=== PATIENT | female | born 1995 | race Caucasian/White ===

== ENCOUNTER 2018-01-20 17:36 | Emergency (ER) | payer BC, OTHER ==
[2018-01-20 17:51] VITALS: BP 129/84; PULSE 76; TEMP 98.4; BMI 32.5
--- NOTE | 2018-01-20 17:51 | PDOC ---
Rapid Medical Evaluation Time Seen by Provider: 01/20/18 17:48 Medical Evaluation: Allergies Allergy/AdvReac Type Severity Reaction Status Date / Time No Known Allergies Allergy Verified 01/30/16 16:54 01/20/18 17:48 I have performed a brief in-person evaluation of this patient. The patient presents with a chief complaint of numbness in left 4th toe since Saturday. Reports pedicure done 6 days ago. Denies injury to toe or wearing tight shoes. Pertinent physical exam findings NAD unlabored breathing ext: left toes, non erythematous, cap refill wnl I have ordered the following: urine hcg The patient will proceed to the ED for further evaluation.
--- NOTE | 2018-01-20 18:44 | PDOC ---
History of Present Illness - General Chief Complaint: Ingrown toenail Stated Complaint: PAIN Time Seen by Provider: 01/20/18 17:48 - History of Present Illness Initial Comments: 01/20/18 18:38 CHIEF COMPLAINT: toe problem HISTORY OF PRESENT ILLNESS: 23 yo F with no PMH presents to [facility] with concerns of numbness to her L 4th toe. Patient reports that she feels the toe is "numb and swollen and I was concerned because there's a family history of diabetes and I think my uncle had his toe amputated before." She denies any injury, trauma, or pain to the toe, denies any fever, chills, vomiting, diarrhea , or any other infectious symptoms. She denies that she has ever had a problem with her blood sugar herself. No recent travel or sick contacts. PAST MEDICAL HISTORY: Denies past medical history FAMILY HISTORY: Denies SOCIAL HISTORY: Denies tobacco, alcohol, illicit drug use. SURGICAL HISTORY: Denies ALLERGIES: No known drug allergies REVIEW OF SYSTEMS see HPI PHYSICAL EXAM General Appearance: Well-appearing, appropriately dressed. No apparent distress , no intoxication. HEENT: EOMI, PERRLA, normal ENT inspection, normal voice, TMs normal, pharynx normal. No conjunctival pallor. No photophobia, scleral icterus. Neck: Supple. Trachea midline. No tenderness, rigidity, carotid bruit, stridor , lymphadenopathy, or thyromegaly. Respiratory/Chest: Lungs CTAB. No shortness of breath, chest tenderness, respiratory distress, accessory muscle use. No crackles, rales, rhonchi, stridor , wheezing, dullness Cardiovascular: RRR. S1, S2. No JVD, murmur, bradycardia, tachycardia. Vascular Pulses: Dorsalis-Pedis (R): 2+, Dorsalis-Pedis (L): 2+ Gastrointestinal/Abdominal: Normal bowel sounds. Abdomen soft, non-distended. No tenderness or rebound tenderness. No organomegaly, pulsatile mass, guarding , hernia, hepatomegaly, splenomegaly. Lymphatic: No adenopathy, tenderness. Musculoskeletal/Extremities: Normal inspection. FROM of all extremities, normal capillary refill. Pelvis Stable. No CVA tenderness. No tenderness to extremities, pedal edema, swelling, erythema or deformity. Integumentary: Appropriate color, dry, warm. 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 Fully oriented, alert. Appropriate mood/affect. Motor strength 5/5. No appreciable EOM palsy, facial droop or sensory deficit. : He Past History - Past Medical History Allergies/Adverse Reactions: Allergies Allergy/AdvReac Type Severity Reaction Status Date / Time No Known Allergies Allergy Verified 01/20/18 17:48 Home Medications: Ambulatory Orders NK [No Known Home Medication] 01/20/18 Asthma: Yes COPD: No - Suicide/Smoking/Psychosocial Hx Smoking History: Never smoked Hx Alcohol Use: No Drug/Substance Use Hx: No Substance Use Type: None *Physical Exam - Vital Signs Last Vital Signs Temp Pulse Resp BP Pulse Ox 98.4 F 76 19 129/84 99 01/20/18 17:48 01/20/18 17:48 01/20/18 17:48 01/20/18 17:48 01/20/18 17:48 ED Treatment Course - RADIOLOGY Radiology Studies Ordered: Category Date Time Status TOE(S) LEFT [RAD] Stat Radiology 01/20/18 18:16 Ordered Medical Decision Making - Medical Decision Making 01/20/18 18:44 23 yo F with no PMH presents to [facility] with concerns of numbness to her L 4th toe. -toe x-ray x-ray negative Advised patient to take medication as prescribed and follow up with podiatry if symptoms persist. Advised patient of signs and symptoms for return to ED. Patient verbalized understanding and agrees to plan. *DC/Admit/Observation/Transfer Diagnosis at time of Disposition: Toe problem - Discharge Dispostion Disposition: HOME Condition at time of disposition: Stable Admit: No - Referrals Referrals: Haris Hawthorne [Primary Care Provider] - Vik Hernandez MD [Staff Physician] - - Patient Instructions Additional Instructions: As discussed, you need to follow up with your primary care doctor and podiatry for further evaluation. If you develop any new or worsening symptoms, especially fever, chills, vomiting, or diarrhea, please return to the ER. - Post Discharge Activity
== END 2018-01-20 18:51 | disposition home or self-care (01) ==
LOC: JERFT 17:36
DX: R20.0 Anesthesia of skin (principal)
CPT/HCPCS: 73660-TC-FY; 99281-25

== ENCOUNTER 2022-08-10 20:37 | Emergency (ER) | payer BC ==
[2022-08-10 20:43] VITALS: BP 117/81; PULSE 86; RESP 19; TEMP 98.1; BMI 38.9
[2022-08-10] MEDS ORDERED: SODIUM CHLORIDE 1,000 ML IV STA (22:04)
[2022-08-10] MEDS ORDERED: ACETAMINOPHEN 1000 MG/100 ML BAG IVPB ONE (22:04)
[2022-08-10] MEDS ORDERED: ACETAMINOPHEN INJECTION 100 ML IVPB ONE (23:18)
[2022-08-10 23:23] LABS: BASO % 0.8 % (0-2.0); EOS % 0.3 % (0-4.5); HEMOGLOBIN 12.1 GM/dL (10.7-15.3); LYMPH % 29.6 % (8-40); MCH 29.8 pg (25.7-33.7); MCHC 33.6 g/dl (32.0-36.0); MEAN CELL VOLUME 88.4 fl (80-96); MEAN PLT VOLUME 7.5 fl (7.5-11.1); MONO % 7.6 % (3.8-10.2); NEUT % 61.7 % (42.8-82.8); PLATELET COUNT 307 10^3/uL (134-434); RBC 4.07 M/mm3 (3.60-5.2); RDW 13.9 % (11.6-15.6); WHITE BLOOD COUNT 11.1 K/mm3 (4.0-10.0)
[2022-08-10 23:40] LABS: EPI CELLS >36 /uL (0-25.1); HYALINE CASTS 2 /uL (0-3.1); URINE APPEARANCE CLOUDY; URINE BACTERIA >9,000 /uL (0-1359); URINE BILIRUBIN NEGATIVE (NEGATIVE); URINE COLOR YELLOW; URINE GLUCOSE (UA) NEGATIVE (NEGATIVE); URINE KETONE TRACE (NEGATIVE); URINE LEUK ESTERASE 1+ (NEGATIVE); URINE NITRITE POSITIVE (NEGATIVE); URINE PROTEIN NEGATIVE (NEGATIVE); URINE RBC 19 /uL (0-23.9); URINE UROBILINOGEN 0.2 mg/dL (0.2-1.0); URINE WBC 30 /uL (0-25.8)
[2022-08-10 23:40] LABS: CALCIUM 8.9 mg/dL (8.5-10.1)
[2022-08-10 23:44] LABS: CREATININE 0.5 mg/dL (0.55-1.3)
[2022-08-11] MEDS ORDERED: CEPHALEXIN 250 MG/5 ML ORAL SUSPENSION PO ONE (00:58)
[2022-08-11] MEDS ORDERED: CEPHALEXIN 250 MG/5 ML ORAL SUSPENSION ONE (01:01)
== END 2022-08-11 01:05 | disposition home or self-care (01) ==
LOC: JER 20:37
PROC: 3E0333Z Introduction of Anti-inflammatory into Peripheral Vein, Percutaneous Approach (ICD-10-PCS; principal; 2022-08-10)
PROC: 3E0337Z Introduction of Electrolytic and Water Balance Substance into Peripheral Vein, Percutaneous Approach (ICD-10-PCS; 2022-08-10)
DX: O23.41 Unspecified infection of urinary tract in pregnancy, first trimester (principal); O26.891 Other specified pregnancy related conditions, first trimester; R51.9 Headache, unspecified; Z3A.10 10 weeks gestation of pregnancy
CPT/HCPCS: 36415; 76817-TC; 80048; 81003; 84702; 85025; 99284-25